=== PATIENT | male | born 1930 | race African-American/Black ===

== ENCOUNTER 2017-02-18 08:58 | Inpatient (IN) ==
[2017-02-18 09:43] LABS: Basophils # 0.1 10*3/uL (0.0-0.2); Basophils % 0.3 % (0.0-0.8); Eosinophils # 0.2 10*3/uL (0.0-0.87); Eosinophils % 1.2 % (0.00-10.9); Hematocrit 33.5 VOL% (42.0-52.0); Hemoglobin 10.8 GM/DL (14.0-18.0); Immature Granulocytes % 0.5 %; Immature Granulocytes Absolute 0.08 #; Lymphocytes # 1.5 10*3/uL (1.4-4.0); Lymphocytes % 10.5 % (21.2-54.2); Mean Corpuscular HGB Conc 32.2 GM/DL (32-36); Mean Corpuscular Hemoglobin 26 PG (27-34); Mean Corpuscular Volume 80.3 FL (87-102); Mean Platelet Volume 10.7 FL (9.6-12.0); Monocytes # 1.1 10*3/uL (0.11-0.8); Monocytes % 7.7 % (1.7-12.7); Neutrophils # 11.7 10*3/uL (1.4-7.4); Neutrophils % 79.8 % (38.7-73.9); Platelet Count 334 T/CUMM (130-400); Red Blood Count 4.17 MC/CUMM (3.8-5.5); White Blood Count 14.6 T/CUMM (4-12)
[2017-02-18 09:48] LABS: INR 1.3; PT Patient Result 13.4 SECS; Partial Thromboplastin Time 34.8 SECS (0-40)
--- NOTE | 2017-02-18 09:51 | Emergency Department Note ---
IArsalan Brittany, am scribing for, and in the presence of, Violeta Mac DO 09:47. IBubba Debra, DO, personally performed the services described in this documentation, ascribed by Judy Arriaza in my presence, and it is both accurate and complete [id number] . Arrival - Arrival Chief Complaint: Shortness of Breath Stated Complaint: sob since last pm ED Nursing Triage Note: c/o having shortness of breath., states he has had sob since last pm., patient transfer from [facility], patient did not want to come but and staff enforced him coming., patient refused his oxygen , refused breathing treatment and IV enroute per medic Mode of Arrival: Stretcher Limitations: No Limitations Source: Patient, RN Notes Reviewed - History of Present Illness HPI Narrative: Patient is a 87 y/o black male presenting to the ED by EMS from [facility] for further evaluation of shortness of breath. Patient states that he has been short of breath for the past two to three days, worsening today. Patient denies history of CHF, but reports he has had stents placed. 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 Patient has an oxygen saturation of 97% on 2L oxygen via [place]. Patient has a past medical history of Cardiac Dysrhythmia, HTN, CVA, Left Eye Ptsois, Left Eye Glaucoma, Dyslipidemia, Asthma, COPD, Chronic Renal Insufficiency, Kidney Stones, Recurrent UTIs, Diverticulitis, Diverticulosis, GERD, Polyps, Osteoarthritis. Allergies/Adverse Reactions: Allergies Allergy/AdvReac Type Severity Reaction Status Date / Time Penicillins Allergy Unknown Unknown/Unable Verified 01/01/17 16:50 to obtain Home Medications: Home Medications Medication Instructions Recorded Confirmed Type Aspirin EC Tab 81 mg PO DAILY 02/24/15 01/01/17 History Atenolol 50 mg PO DAILY 02/24/15 01/01/17 History Atorvastatin [Lipitor] 20 mg PO DAILY 02/24/15 01/01/17 History Finasteride 5 mg PO DAILY 02/24/15 01/01/17 History Tamsulosin [Flomax] 0.4 mg PO DAILY 02/24/15 01/01/17 History Apixaban [Eliquis] 5 mg PO BID 03/22/16 01/01/17 History Albuterol Sulfate [Ventolin HFA] 2 puff INH Q6H PRN 10/02/16 01/01/17 History Digoxin Tab [Lanoxin Tab] 0.125 mg PO DAILY 10/02/16 01/01/17 History Furosemide Tab [Lasix Tab] 20 mg PO DAILY 10/02/16 01/01/17 History Pantoprazole Tab [Protonix Tab] 40 mg PO DAILY 10/02/16 01/01/17 History Diclofenac 1% Gel [Voltaren 1% Gel] 1 applic TOP QID 12/21/16 01/01/17 History Fluticasone/Salmeterol 250-50 1 puff INH BID 12/21/16 01/01/17 History [Advair 250-50] Gabapentin 300 mg PO BEDTIME 12/21/16 01/01/17 History Nitroglycerin Sl Tab [Nitrostat] 0.4 mg SL Q5M PRN 12/25/16 01/01/17 History Nortriptyline HCl 25 mg PO QPM 12/25/16 01/01/17 History Roflumilast [Daliresp] 500 mcg PO DAILY 12/25/16 01/01/17 History Brimonidine 0.1% Oph Soln 1 drop BOTH EYES BID bottle 01/01/17 01/01/17 Rx [Alphagan P 0.1% Oph Soln] Diltiazem Tab [Cardizem Tab] 30 mg PO TID tablet 01/01/17 01/01/17 Rx Docusate Sodium Cap [Colace Cap] 100 mg PO BID PRN #0 capsule 01/01/17 01/01/17 Rx HYDROcodone/ACETAMIN 5-325 [[place] 1 tablet PO Q6H PRN #30 01/01/17 01/01/17 Rx 5-325] Rosuvastatin [Crestor] 40 mg PO BEDTIME tablet 01/01/17 01/01/17 Rx Review of System - Review of System 12 point system: reviewed and no additional remarkable complaints except as stated - Review of System Respiratory: Present: respiratory distress Medical,Surgical,& Family Hx - Medical History Cardio: History of: Cardiac Dysrhythmia (a-fib), Hypertension Neurology: History of: Cerebrovascular Accident (December 2016) No history of: Seizures HEENT: History of: Ear Problem (VERY HARD OF HEARING, bilateral hearing aids), Eye Problem (ptosis in Left eye), Glaucoma (left eye) Endocrine: History of: Dyslipidemia Respiratory: History of: Asthma ( states, "touch of asthma"), COPD, Respiratory Problems (sob) Renal: History of: Renal Problems (CHRONIC RENAL INSUFFICIENCY) Genitourinary: History of: Kidney Stones, Recurring Urinary Tract Infections Gastrointestinal: History of: Diverticulitis/ Diverticulosis, GERD, Polyps, GI Problems (Constipation) Musculoskeletal: History of: Musculoskeletal Problems (OSTEOARTHRITIS) - Surgical History Cardiac Surgeries: Patient Denies: Cardiac Catheterization Thoracic Surgeries: Patient denies;: Lobectomy Neurologic Surgeries: Patient denies: Neurologic Surgery HEENT Surgeries: Surgical HX of: Eye Surgery (cataract removal from both eyes) Abdominal Surgeries: Surgical HX of: Abdominal Surgery, Colonoscopy, EGD, Hernia Repair Patient denies: Appendectomy, Cholecystectomy Orthopedic Surgeries: Patient denies;: Orthopedic Surgery - Family History Family History: Reports;: Family Hypertension - Social History Smoking Status: Smoker, status unknown Frequency of Alcohol Use: None Type of Drug Use: None Exam Vital Signs: Vital Signs Temperature 98.5 F 02/18/17 08:58 Pulse Rate 125 H 02/18/17 10:49 Respiratory Rate 19 02/18/17 10:49 Blood Pressure 171/103 02/18/17 10:30 O2 Sat by Pulse Oximetry 93 L 02/18/17 10:49 - General General appearance: alert, in no apparent distress - Head Head exam: Present: atraumatic, normocephalic, normal inspection - Eye Eye exam: Present: PERRL, EOMI. Absent: normal appearance (ptosis of the left eye) - ENT ENT exam: Present: normal exam, normal oropharynx, mucous membranes moist - Neck Neck exam: Present: normal inspection, full ROM, trachea midline - Chest Chest inspection: Present: normal inspection, symmetric chest wall rise - Respiratory Respiratory exam: Present: rales (throughout both lung stein). Absent: normal lung sounds bilaterally - Cardiovascular Cardiovascular exam: Present: regular rate, normal rhythm, normal heart sounds. Absent: murmur, rubs, gallop - Abdominal Exam Abdominal exam: Present: soft, normal bowel sounds. Absent: distention, tenderness - Extremities Exam Extremities exam: Present: normal inspection. Absent: pedal edema - Back Exam Back exam: Present: normal inspection - Neurological Exam Neurological exam: Present: alert, oriented X3, CN II-XII intact. Absent: motor sensory deficit - Psychiatric Psychiatric exam: Present: normal affect, normal mood - Skin Skin exam: Present: warm, dry, intact, normal color Course Course Narrative: spoke with hospitalist who will admit pt with pneumonia Results - Labs CBC & BMP: 02/18/17 09:15 02/18/17 09:15 Lab Results: I have reviewed the patients labs Labs: Laboratory Tests 02/18/17 02/18/17 09:15 09:15 WBC 14.6 H RBC 4.17 Hgb 10.8 L Hct 33.5 L MCV 80.3 L MCH 26 L Plt Count 334 Neut % (Auto) 79.8 H Lymph % (Auto) 10.5 L Neut # (Auto) 11.7 H [place] # (Auto) 1.1 H INR 1.3 PT Patient/Control Mix 13.4 Circ Anticoag PTT 34.8 D Laboratory Tests 02/18/17 02/18/17 09:15 09:15 Sodium 138 Potassium 3.5 Chloride 103 Carbon Dioxide 27 BUN 7 Creatinine 1.30 BUN/Creatinine Ratio 5.00 L Glucose 96 Calculated Osmolality 272.7 L AST 51 H Total Creatine Kinase 89 CK-MB (CK-2) < 1.0 Troponin I < 0.015 B-Natriuretic Peptide 127 H Total Protein 8.4 H Albumin 2.4 L Globulin 6.0 H Albumin/Globulin Ratio 0.4 L Disposition Clinical Impression: Pneumonia Case discussed with: patient, patient's family Disposition: Still a Patient Condition: Stable Time of Disposition: 10:53
[2017-02-18] MEDS ORDERED: LEVOFLOXACIN INJ 500 MG in PREMIX 1 EACH IV STA (10:18)
[2017-02-18] MEDS ORDERED: LEVOFLOXACIN INJ 100 ML IV ONE (10:22)
[2017-02-18 10:24] LABS: Alanine Aminotransferase 46 U/L (16-61); Albumin 2.4 G/DL (3.4-5.0); Alkaline Phosphatase 108 U/L (45-117); Aspartate Amino Transferase 51 U/L (0-37); Blood Urea Nitrogen 7 MG/DL (7-18); Calcium 9.4 MG/DL (8.5-10.1); Glucose 96 MG/DL (74-106); Osmolality,Calculated 272.7 MOS/KG (273-304); Potassium 3.5 MMOL/L (3.5-5.1); Sodium 138 MMOL/L (136-145); Total Protein 8.4 G/DL (6.4-8.3); Troponin I Only < 0.015 NG/ML (0.00-0.045)
[2017-02-18] MEDS ORDERED: ALBUTEROL/IPRATROPIUM 3 ML NEB RESP TX STA (10:37)
[2017-02-18] MEDS ORDERED: LACTULOSE 20 GM/30 ML UDCUP PO PRN (11:55)
[2017-02-18] MEDS ORDERED: BISACODYL 5 MG TABLET PO PRN (11:55)
[2017-02-18] MEDS ORDERED: ONDANSETRON 4 MG/2 ML VIAL IV PRN (11:55)
[2017-02-18] MEDS ORDERED: ACETAMINOPHEN 325 MG TABLET PO PRN (11:55)
[2017-02-18] MEDS ORDERED: DOCUSATE SODIUM 100 MG CAPSULE PO PRN ×2 (11:55→13:11)
[2017-02-18] MEDS ORDERED: MORPHINE 2 MG/1 ML SYRINGE IV PRN (11:55)
[2017-02-18] MEDS ORDERED: ALBUTEROL/IPRATROPIUM 3 ML NEB RESP TX PRN (12:09)
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
[2017-02-18 12:35] LABS: Risk Ratio 1.78; VLDL CHOLESTEROL 15.2 MG/DL
--- NOTE | 2017-02-18 12:42 | Hospitalist History & Physical ---
Assessment and Plan - Time spent with patient Time spent with patient: Greater than 30 minutes (1) Pneumonia Status: Acute Assessment and plan: Chest x-ray shows developing right lower lobe infectious/inflammatory infiltrate. Patient has been started on Levaquin IV. Current Visit: Yes (2) Pleural effusion Status: Acute Assessment and plan: Chest x-ray reveals small right pleural effusion with suspected chronic interstitial scarring and mild superimposed interstitial edema. Patient does have a history of CHF. Will initiate diuresis and consult pulmonology if necessary. Current Visit: Yes (3) Hypertension Status: Acute Current Visit: No (4) Visual loss, left eye Status: Acute Current Visit: No History of Present Illness Chief complaint: SOB, productive cough History of present illness: Mr. Lamb is a 87 year old male with a past medical history significant for hypertension, cardiac dysrhythmia, CHF, CVA, left eye ptosis and glaucoma, hyperlipidemia, COPD, chronic renal failure who presents to the ED via EMS from [facility] for further evaluation of progressive shortness of breath and cold-like symptoms 1 week. 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 He was a patient at time in a rehab and was recently transferred to [facility]hab for further treatment. On exam , the patient is lying awake alert and in no apparent distress. He is verbal but his conversation is grossly incoherent. His and daughter are at bedside and provided most of the history. They report that the patient had been noticeably short of breath and declining for the past 2 weeks. Most recently, he has been exhibiting what they described as "cold-like" symptoms with cough productive of yellow sputum, shortness of breath, and rattling in his chest. Chest x-ray per rehab facility revealed an apparent pulmonary process and the patient was sent via EMS to [facility] for further evaluation. Patient denies headache, chest pain, palpitations, near syncope, abdominal pain , nausea vomiting. Preliminary labs in the emergency room reveal white blood cell count 14.6, hemoglobin 10.8, hematocrit 33.5, BUN 7, creatinine 1.3, calculated osmolality 272.7, BNP 127. The patient will be admitted to hospital medicine service for further evaluation and treatment. He is a full code. Case was discussed with Dr. Dubois. Home Medications Medication Instructions Recorded Confirmed Type Aspirin EC Tab 81 mg PO DAILY 02/24/15 02/18/17 History Atenolol 50 mg PO DAILY 02/24/15 02/18/17 History Finasteride 5 mg PO DAILY 02/24/15 02/18/17 History Tamsulosin [Flomax] 0.4 mg PO DAILY 02/24/15 02/18/17 History Apixaban [Eliquis] 5 mg PO BID 03/22/16 02/18/17 History Albuterol Sulfate [Ventolin HFA] 2 puff INH Q6H PRN 10/02/16 02/18/17 History Digoxin Tab [Lanoxin Tab] 0.125 mg PO DAILY 10/02/16 02/18/17 History Furosemide Tab [Lasix Tab] 20 mg PO DAILY 10/02/16 02/18/17 History Pantoprazole Tab [Protonix Tab] 40 mg PO PC BREAKFAST 10/02/16 02/18/17 History Fluticasone/Salmeterol 250-50 1 puff INH BID 12/21/16 02/18/17 History [Advair 250-50] Gabapentin 300 mg PO BEDTIME 12/21/16 02/18/17 History Nitroglycerin Sl Tab [Nitrostat] 0.4 mg SL Q5M PRN 12/25/16 02/18/17 History Nortriptyline HCl 25 mg PO QPM 12/25/16 02/18/17 History Roflumilast [Daliresp] 500 mcg PO DAILY 12/25/16 02/18/17 History Brimonidine 0.1% Oph Soln 1 drop BOTH EYES BID bottle 01/01/17 02/18/17 Rx [Alphagan P 0.1% Oph Soln] Diltiazem Tab [Cardizem Tab] 30 mg PO TID tablet 01/01/17 02/18/17 Rx Docusate Sodium Cap [Colace Cap] 100 mg PO BID PRN #0 capsule 01/01/17 02/18/17 Rx HYDROcodone/ACETAMIN 5-325 [[place] 1 tablet PO Q6H PRN #30 01/01/17 02/18/17 Rx 5-325] Rosuvastatin [Crestor] 40 mg PO BEDTIME tablet 01/01/17 02/18/17 Rx Diclofenac 1% Gel [Voltaren 1% Gel] 4 gm TOP QID MDD 32 GM/24H 02/18/17 History Doxycycline Hyclate Cap 100 mg PO BID 02/18/17 02/18/17 History [Vibramycin Cap] Magnesium Hydroxide Susp [Milk of 30 ml PO Q24H PRN 02/18/17 02/18/17 History Magnesia] Multivitamin (Centrum) [Centrum 1 tablet PO DAILY 02/18/17 02/18/17 History Tab] Allergies Allergy/AdvReac Type Severity Reaction Status Date / Time Penicillins Allergy Unknown Unknown/Unable Verified 01/01/17 16:50 to obtain Medical,Surgical,& Family Hx - Medical History Cardio: History of: Cardiac Dysrhythmia (a-fib), Hypertension Neurology: History of: Cerebrovascular Accident (December 2016) No history of: Seizures HEENT: History of: Ear Problem (VERY HARD OF HEARING, bilateral hearing aids), Eye Problem (ptosis in Left eye), Glaucoma (left eye) Endocrine: History of: Dyslipidemia Respiratory: History of: Asthma ( states, "touch of asthma"), COPD, Respiratory Problems (sob) Renal: History of: Renal Problems (CHRONIC RENAL INSUFFICIENCY) Genitourinary: History of: Kidney Stones, Recurring Urinary Tract Infections Gastrointestinal: History of: Diverticulitis/ Diverticulosis, GERD, Polyps, GI Problems (Constipation) Musculoskeletal: History of: Musculoskeletal Problems (OSTEOARTHRITIS) - Surgical History Cardiac Surgeries: Patient Denies: Cardiac Catheterization Thoracic Surgeries: Patient denies;: Lobectomy Neurologic Surgeries: Patient denies: Neurologic Surgery HEENT Surgeries: Surgical HX of: Eye Surgery (cataract removal from both eyes) Abdominal Surgeries: Surgical HX of: Abdominal Surgery, Colonoscopy, EGD, Hernia Repair Patient denies: Appendectomy, Cholecystectomy Orthopedic Surgeries: Patient denies;: Orthopedic Surgery - Family History Family History: Reports;: Family Hypertension - Social History Smoking Status: Smoker, status unknown Frequency of Alcohol Use: None Type of Drug Use: None Marital Status: Lives With:: half-way ([facility]) Functional capacity: bed bound ROS unobtainable: due to encephalopathy 12 point system: reviewed and no additional remarkable complaints except as stated - Respiratory Respiratory: Present: cough Exam - Constitutional Vitals: Period Temp Pulse Resp BP Sys/Dean Pulse Ox Last 24 Hr 112-129 19-20 150-175/92-93 93-99 Exam: General appearance: normal weight, no acute distress - Head Head exam: Present: normocephalic, atraumatic - Eye Eye exam: Present: EOMI. Absent: conjunctival injection, nystagmus Pupils: Present: MIRANDA, normal accommodation - ENT ENT exam: Present: normal exam, normal external ear exam - Neck Neck exam: Present: normal inspection. Absent: lymphadenopathy, tenderness, thyromegaly - Respiratory Respiratory exam: Present: rhonchi, expiratory wheezing. Absent: rales - Cardiovascular Cardiovascular exam: Present: regular rate and rhythm. Absent: carotid bruit, gallop, rubs - GI/Abdominal GI/Abdominal exam: Present: normal bowel sounds. Absent: ascites, distended, mass - Extremities Exam Extremities exam: Present: normal inspection, normal capillary refill. Absent: edema - Back Exam Back exam: Absent: CVA tenderness (L), CVA tenderness (R) - Neurological Exam Neurological exam: Present: alert, CN II-XII intact, reflexes normal - Psychiatric Psychiatric exam: Present: normal affect, normal mood - Skin Skin exam: Present: normal color, warm, dry Results - Labs CBC & BMP: 02/18/17 09:15 02/18/17 09:15 Lab Results: I have reviewed the past 24 hour labs - Diagnostic Findings Procedure: Chest x-ray: image reviewed by me, report reviewed by me (Small right pleural effusion; developing right lower lobe infectious process)
[2017-02-18] MEDS ORDERED: MAGNESIUM HYDROXIDE SUSP 30 ML UDCUP PO PRN (13:11)
[2017-02-18] MEDS ORDERED: NITROGLYCERIN SL 0.4 MG TABLET SL PRN (13:11)
[2017-02-18] MEDS: methylPREDNISolone SOD SUC 40 MG/1 ML VIAL IV SCH (14:47)
[2017-02-18] MEDS: DILTIAZEM 30 MG TABLET PO SCH ×2 (14:48→21:07)
[2017-02-18] MEDS: DICLOFENAC 1% GEL 100 GM TUBE TOP SCH ×2 (16:47→21:08)
[2017-02-18] MEDS: FLUTICASONE/SALMETEROL 250-50 DISKUS 14 DOSE INH SCH (21:00)
[2017-02-18] MEDS: ENOXAPARIN 40 MG/0.4 ML SYRINGE SUBCUT SCH (21:06)
[2017-02-18] MEDS: GABAPENTIN 300 MG CAPSULE PO SCH (21:07)
[2017-02-18] MEDS: ROSUVASTATIN 20 MG TABLET PO SCH (21:07)
[2017-02-18] MEDS: ZALEPLON 5 MG CAPSULE PO PRN (21:07)
[2017-02-18] MEDS: BRIMONIDINE 0.1% OPH SOLN 5 ML BOTTLE BOTH EYES SCH (21:09)
[2017-02-19] MEDS: methylPREDNISolone SOD SUC 40 MG/1 ML VIAL IV SCH ×2 (02:51→15:34)
[2017-02-19 07:06] LABS: Basophils % 0.1 % (0.0-0.8); Hematocrit 34.1 VOL% (42.0-52.0); Hemoglobin 10.9 GM/DL (14.0-18.0); Immature Granulocytes % 0.8 %; Lymphocytes # 1.2 10*3/uL (1.4-4.0); Lymphocytes % 9.1 % (21.2-54.2); Mean Corpuscular Hemoglobin 25 PG (27-34); Mean Corpuscular Volume 79.1 FL (87-102); Mean Platelet Volume 10.7 FL (9.6-12.0); Monocytes # 0.5 10*3/uL (0.11-0.8); Monocytes % 3.6 % (1.7-12.7); Neutrophils # 10.9 10*3/uL (1.4-7.4); Neutrophils % 86.4 % (38.7-73.9); Platelet Count 373 T/CUMM (130-400); Red Blood Count 4.31 MC/CUMM (3.8-5.5); Red Cell Distribution Width 13.8 % (9.3-17.3); White Blood Count 12.6 T/CUMM (4-12)
[2017-02-19 07:40] LABS: Calcium 9.3 MG/DL (8.5-10.1); Osmolality,Calculated 277.5 MOS/KG (273-304); Potassium 3.8 MMOL/L (3.5-5.1)
[2017-02-19] MEDS: TAMSULOSIN 0.4 MG CAPSULE PO SCH (09:48)
[2017-02-19] MEDS: PANTOPRAZOLE 40 MG TABLET PO SCH (09:48)
[2017-02-19] MEDS: FUROSEMIDE 20 MG TABLET PO SCH (09:48)
[2017-02-19] MEDS: DIGOXIN 0.125 MG TABLET PO SCH (09:48)
[2017-02-19] MEDS: ASPIRIN EC 81 MG TABLET PO SCH (09:48)
[2017-02-19] MEDS: FINASTERIDE 5 MG TABLET PO SCH (09:48)
[2017-02-19] MEDS: ROFLUMILAST 500 MCG TABLET PO SCH (09:48)
[2017-02-19] MEDS: DILTIAZEM 30 MG TABLET PO SCH ×3 (09:48→21:32)
[2017-02-19] MEDS: MULTIVITAMIN (CENTRUM) TABLET PO SCH (09:48)
[2017-02-19] MEDS: ATENOLOL 50 MG TABLET PO SCH (09:48)
[2017-02-19] MEDS: BRIMONIDINE 0.1% OPH SOLN 5 ML BOTTLE BOTH EYES SCH ×2 (09:49→21:31)
[2017-02-19] MEDS: DICLOFENAC 1% GEL 100 GM TUBE TOP SCH ×4 (09:49→21:31)
[2017-02-19] MEDS: FLUTICASONE/SALMETEROL 250-50 DISKUS 14 DOSE INH SCH ×2 (09:52→21:31)
[2017-02-19] MEDS: LEVOFLOXACIN INJ 750 MG in PREMIX 1 EACH IV SCH (11:53)
[2017-02-19 15:45] LABS: Apearance,Urine CLEAR (Clear); Bilirubin,Urine Negative (Negative); Blood, Urine Negative (Negative); Glucose,Urine (UA) Negative (Negative); Ketones,Urine 5 mg/dL (Negative); Mucus,Urine Occasional /LPF (Occasional); Nitrite,Urine Negative (Negative); Protein,Urine 30 MG/DL; RBC,Urine <1 /HPF (0-4); Urine Color Yellow (Yellow); Urine Specific Gravity 1.011 (1.001-1.035); Urine Urobilinogen < 2.0 EU/DL (0.2-1.0); WBC,Urine 1 /HPF (0-6)
--- NOTE | 2017-02-19 16:25 | Hospitalist Progress Note ---
Assessment and Plan (1) Visual loss, left eye Status: Chronic Current Visit: No (2) Hypertension Status: Chronic Current Visit: No (3) Pneumonia Status: Acute Current Visit: Yes Hospitalist: Subjective Interval history: No acute events overnight. He reports improvement in his cough. He is breathing comfortably. Continue abx and duonebs. Possible discharge soon. Exam - Constitutional Vitals: Period Temp Pulse Resp BP Sys/Dean Pulse Ox Last 24 Hr 97.9 F-99.6 F 83-98 18-20 144-162/69-93 92-99 General appearance: normal weight - Head Head exam: Present: normocephalic, atraumatic - Eye Eye exam: Present: EOMI Pupils: Present: MIRANDA - ENT ENT exam: Present: normal exam - Neck Neck exam: Present: normal inspection - Respiratory Respiratory exam: Present: clear to auscultation bilaterally. Absent: rhonchi, wheezes - Cardiovascular Cardiovascular exam: Present: regular rate and rhythm - GI/Abdominal GI/Abdominal exam: Present: normal bowel sounds, soft. Absent: tenderness, rebound - Extremities Exam Extremities exam: Present: normal inspection - Back Exam Back exam: Present: normal inspection - Neurological Exam Neurological exam: Present: alert, oriented X3 - Psychiatric Psychiatric exam: Present: normal affect, normal mood - Skin Skin exam: Present: warm, intact Results - Labs CBC & BMP: 02/19/17 06:00 02/19/17 06:00
[2017-02-19] MEDS: ENOXAPARIN 40 MG/0.4 ML SYRINGE SUBCUT SCH (21:30)
[2017-02-19] MEDS: ROSUVASTATIN 20 MG TABLET PO SCH (21:31)
[2017-02-19] MEDS: GABAPENTIN 300 MG CAPSULE PO SCH (21:31)
[2017-02-20] MEDS: methylPREDNISolone SOD SUC 40 MG/1 ML VIAL IV SCH ×2 (02:49→15:17)
[2017-02-20 05:19] LABS: Basophils % 0.1 % (0.0-0.8); Hematocrit 34.9 VOL% (42.0-52.0); Hemoglobin 11.1 GM/DL (14.0-18.0); Immature Granulocytes Absolute 0.17 #; Lymphocytes % 5.7 % (21.2-54.2); Mean Corpuscular HGB Conc 31.8 GM/DL (32-36); Mean Corpuscular Hemoglobin 26 PG (27-34); Mean Corpuscular Volume 80.2 FL (87-102); Mean Platelet Volume 10.3 FL (9.6-12.0); Monocytes # 0.3 10*3/uL (0.11-0.8); Monocytes % 1.8 % (1.7-12.7); Neutrophils # 15.7 10*3/uL (1.4-7.4); Neutrophils % 91.4 % (38.7-73.9); Platelet Count 405 T/CUMM (130-400); Red Blood Count 4.35 MC/CUMM (3.8-5.5); Red Cell Distribution Width 13.8 % (9.3-17.3); White Blood Count 17.1 T/CUMM (4-12)
[2017-02-20 05:55] LABS: Band Neutrophils 1 % (0-10); Hypochromasia 1+; Lymphocytes 4 % (20-55); Microcytosis 1+; Segmented Neutrophils 94 % (50-85); Total Cells Counted 100
[2017-02-20 09:02] LABS: Albumin 2.5 G/DL (3.4-5.0); Bilirubin,Total 0.4 MG/DL (0.2-1.0); Calcium 9.3 MG/DL (8.5-10.1); Osmolality,Calculated 280.7 MOS/KG (273-304); Potassium 4.1 MMOL/L (3.5-5.1); Total Protein 7.5 G/DL (6.4-8.3)
[2017-02-20 09:14] LABS: Magnesium 2.4 MG/DL (1.8-2.4); Phosphorous 2.7 MG/DL (2.5-4.9)
--- NOTE | 2017-02-20 09:30 | Hospitalist Progress Note ---
<Mera Iversonbrit - Last Filed: 02/20/17 09:33> Assessment and Plan (1) Pneumonia Status: Acute Assessment and plan: WBC elevated today at 17.1 from 12.6. Continue antibiotics as previously ordered ; will start Current Visit: Yes (2) Atrial fibrillation Status: Acute Assessment and plan: Rate is controlled; will monitor closely and treat as indicated. Current Visit: No (3) Visual loss, left eye Status: Chronic Assessment and plan: Will start eye lubricant at hs for comfort. Current Visit: No Hospitalist: Subjective Interval history: Patient seen and examined. No significant overnight events. Noted elevation in WBC's; WBC at 17.1 from 12.6 on yesterday. Exam - Constitutional Vitals: Period Temp Pulse Resp BP Sys/Dean Pulse Ox Last 24 Hr 98.1 F-98.7 F 83-98 16-20 136-157/64-88 92-99 General appearance: normal weight, no acute distress - Head Head exam: Present: normal inspection, normocephalic, atraumatic - Eye Eye exam: Present: EOMI, other (vision loss to right eye) Pupils: Present: MIRANDA - ENT ENT exam: Present: normal exam - Neck Neck exam: Present: normal inspection. Absent: lymphadenopathy, meningismus, thyromegaly - Respiratory Respiratory exam: Present: decreased breath sounds. Absent: rales, rhonchi, stridor, wheezes - Cardiovascular Cardiovascular exam: Present: regular rate and rhythm. Absent: carotid bruit, diastolic murmur, gallop, JVD, rubs, systolic murmur - GI/Abdominal GI/Abdominal exam: Present: normal bowel sounds, soft. Absent: firm, guarding - Extremities Exam Extremities exam: Present: normal inspection - Back Exam Back exam: Present: normal inspection - Neurological Exam Neurological exam: Present: alert, altered - Psychiatric Psychiatric exam: Present: normal affect - Skin Skin exam: Present: normal color, warm, dry Results - Labs CBC & BMP: 02/20/17 05:04 02/20/17 05:00 Lab Results: I have reviewed the past 24 hour labs <Stan Streeter - Last Filed: 02/20/17 14:16> Assessment and Plan (1) Visual loss, left eye Status: Chronic Current Visit: No (2) Hypertension Status: Chronic Current Visit: No (3) Pneumonia Status: Acute Current Visit: Yes Hospitalist: Subjective Interval history: Patient seen and examined along with CY[employer] SOFTWARE ENGINEER Kishor, agree with history, assessment and plan as documented. Patient reports that he feels well. Worsening leukocytosis today, patient remains afebrile with no new overt signs of infection. Will monitor closely. Possible discharge soon. Exam - Constitutional Vitals: Period Temp Pulse Resp BP Sys/Dean Pulse Ox Last 24 Hr 98.2 F-98.7 F 78-97 16-20 136-159/64-88 93-99 Results - Labs CBC & BMP: 02/20/17 05:04 02/20/17 05:00
[2017-02-20] MEDS: BRIMONIDINE 0.1% OPH SOLN 5 ML BOTTLE BOTH EYES SCH ×2 (09:35→20:53)
[2017-02-20] MEDS: DIGOXIN 0.125 MG TABLET PO SCH (09:35)
[2017-02-20] MEDS: FLUTICASONE/SALMETEROL 250-50 DISKUS 14 DOSE INH SCH ×2 (09:35→20:53)
[2017-02-20] MEDS: DICLOFENAC 1% GEL 100 GM TUBE TOP SCH ×4 (09:35→20:54)
[2017-02-20] MEDS: DILTIAZEM 30 MG TABLET PO SCH ×3 (09:36→20:53)
[2017-02-20] MEDS: MULTIVITAMIN (CENTRUM) TABLET PO SCH (09:36)
[2017-02-20] MEDS: ASPIRIN EC 81 MG TABLET PO SCH (09:36)
[2017-02-20] MEDS: TAMSULOSIN 0.4 MG CAPSULE PO SCH (09:36)
[2017-02-20] MEDS: ROFLUMILAST 500 MCG TABLET PO SCH (09:37)
[2017-02-20] MEDS: PANTOPRAZOLE 40 MG TABLET PO SCH (09:38)
[2017-02-20] MEDS: FINASTERIDE 5 MG TABLET PO SCH (09:38)
[2017-02-20] MEDS: ATENOLOL 50 MG TABLET PO SCH (09:38)
[2017-02-20] MEDS: FUROSEMIDE 20 MG TABLET PO SCH (09:38)
[2017-02-20] MEDS: LEVOFLOXACIN INJ 750 MG in PREMIX 1 EACH IV SCH (11:04)
[2017-02-20] MEDS: ROSUVASTATIN 20 MG TABLET PO SCH (20:52)
[2017-02-20] MEDS: ZALEPLON 5 MG CAPSULE PO PRN (20:53)
[2017-02-20] MEDS: GABAPENTIN 300 MG CAPSULE PO SCH (20:53)
[2017-02-20] MEDS: ENOXAPARIN 40 MG/0.4 ML SYRINGE SUBCUT SCH (20:53)
[2017-02-20] MEDS ORDERED: MINERAL OIL/PETROLATUM OPH OINT 3.5 GM TUBE LEFT EYE SCH (21:00)
[2017-02-20] MEDS ORDERED: MINERAL OIL/PETROLATUM OPH OINT 3.5 GM TUBE RIGHT EYE SCH (21:00)
[2017-02-21] MEDS: methylPREDNISolone SOD SUC 40 MG/1 ML VIAL IV SCH (02:33)
[2017-02-21 06:57] LABS: Basophils % 0.1 % (0.0-0.8); Hematocrit 33.5 VOL% (42.0-52.0); Hemoglobin 10.8 GM/DL (14.0-18.0); Immature Granulocytes % 1.6 %; Lymphocytes % 5.5 % (21.2-54.2); Mean Corpuscular HGB Conc 32.2 GM/DL (32-36); Mean Corpuscular Hemoglobin 26 PG (27-34); Mean Platelet Volume 10.6 FL (9.6-12.0); Monocytes # 0.4 10*3/uL (0.11-0.8); Monocytes % 2.1 % (1.7-12.7); Neutrophils # 17.1 10*3/uL (1.4-7.4); Neutrophils % 90.7 % (38.7-73.9); Platelet Count 409 T/CUMM (130-400); Red Blood Count 4.19 MC/CUMM (3.8-5.5); Red Cell Distribution Width 13.9 % (9.3-17.3); White Blood Count 18.8 T/CUMM (4-12)
[2017-02-21 07:17] LABS: Band Neutrophils 2 % (0-10); Lymphocytes 1 % (20-55); Nucleated Red Blood Cells 1 (0-5); Segmented Neutrophils 95 % (50-85); Total Cells Counted 100
[2017-02-21 07:18] LABS: Elliptocytes Few; Hypochromasia 1+; Microcytosis 1+; Platelet Estimate Adequate
[2017-02-21 07:32] LABS: Albumin 2.4 G/DL (3.4-5.0); Bilirubin,Total 0.6 MG/DL (0.2-1.0); Calcium 8.7 MG/DL (8.5-10.1); Magnesium 2.4 MG/DL (1.8-2.4); Osmolality,Calculated 282.4 MOS/KG (273-304); Phosphorous 2.5 MG/DL (2.5-4.9); Potassium 4.2 MMOL/L (3.5-5.1); Total Protein 7.1 G/DL (6.4-8.3)
[2017-02-21] MEDS: FINASTERIDE 5 MG TABLET PO SCH (08:04)
[2017-02-21] MEDS: ATENOLOL 50 MG TABLET PO SCH (08:04)
[2017-02-21] MEDS: PANTOPRAZOLE 40 MG TABLET PO SCH (08:04)
[2017-02-21] MEDS: ROFLUMILAST 500 MCG TABLET PO SCH (08:04)
[2017-02-21] MEDS: ASPIRIN EC 81 MG TABLET PO SCH (08:04)
[2017-02-21] MEDS: DIGOXIN 0.125 MG TABLET PO SCH (08:04)
[2017-02-21] MEDS: DILTIAZEM 30 MG TABLET PO SCH (08:04)
[2017-02-21] MEDS: MULTIVITAMIN (CENTRUM) TABLET PO SCH (08:04)
[2017-02-21] MEDS: TAMSULOSIN 0.4 MG CAPSULE PO SCH (08:04)
[2017-02-21] MEDS: FUROSEMIDE 20 MG TABLET PO SCH (08:05)
[2017-02-21] MEDS: DICLOFENAC 1% GEL 100 GM TUBE TOP SCH ×2 (08:05→12:28)
[2017-02-21] MEDS: BRIMONIDINE 0.1% OPH SOLN 5 ML BOTTLE BOTH EYES SCH (08:05)
[2017-02-21] MEDS: FLUTICASONE/SALMETEROL 250-50 DISKUS 14 DOSE INH SCH (08:05)
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
[2017-02-21] MEDS ORDERED: predniSONE 20 MG TABLET PO SCH (09:00)
[2017-02-21] MEDS: LEVOFLOXACIN INJ 750 MG in PREMIX 1 EACH IV SCH (10:45)
[2017-02-21 11:57] VITALS: BP 139/77
--- NOTE | 2017-02-21 12:20 | Discharge Summary ---
Hospital Course - Hospital Course Hospital Course: Mr. Lamb is a 87 year old male with a past medical history significant for hypertension, cardiac dysrhythmia, CHF, CVA, left eye ptosis and glaucoma, hyperlipidemia, COPD, chronic renal failure who presents to the ED via EMS from [facility] for further evaluation of progressive shortness of breath and cold-like symptoms 1 week. 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 He was a patient at time in a rehab and was recently transferred to [facility] for further treatment. Patient was admitted to the hospitalist service for COPD exacerbation and pneumonia. He was started on levaquin and steroids with duoneb breathing treatments. He has done well with initial decline in his white blood cell count. Shortness of breath is completely resolved. He does now have a leukocytosis. CXR is improved and patient is afebrile, believe this leukocytosis is due to steroid use. He has now reached maximum benefit of inpatient stay and will be discharged back to [facility]. - Time spent with patient Time with patient DS: Less than 30 minutes Diagnosis - Discharge Diagnosis (1) Visual loss, left eye Status: Chronic (2) Hypertension Status: Chronic (3) Pneumonia Status: Resolved Discharge Plan - Discharge Data Condition at Discharge: Stable Discharge Diet: advance to your usual diet Activity: resume usual activities as tolerated Hygiene: no restrictions Weight Bearing at Discharge: weight bear as tolerated Contact your physician if you experience:: fever over 101, Shortness of breath - Discharge Medications New predniSONE TAB [PredniSONE] 40 mg PO DAILY #6 tablet Levofloxacin Tab [Levaquin Tab] 500 mg PO DAILY #3 tablet Continue Tamsulosin [Flomax] 0.4 mg PO DAILY Finasteride 5 mg PO DAILY Atenolol 50 mg PO DAILY Aspirin EC Tab 81 mg PO DAILY Apixaban [Eliquis] 5 mg PO BID Albuterol Sulfate [Ventolin HFA] 2 puff INH Q6H PRN PRN Reason: Shortness Of Breath/Wheezing Roflumilast [Daliresp] 500 mcg PO DAILY Nitroglycerin Sl Tab [Nitrostat] 0.4 mg SL Q5M PRN PRN Reason: Chest Pain Diltiazem Tab [Cardizem Tab] 30 mg PO TID tablet Docusate Sodium Cap [Colace Cap] 100 mg PO BID PRN #0 capsule PRN Reason: Constipation Rosuvastatin [Crestor] 40 mg PO BEDTIME tablet Diclofenac 1% Gel [Voltaren 1% Gel] 4 gm TOP QID MDD 32 GM/24H Magnesium Hydroxide Susp [Milk of Magnesia] 30 ml PO Q24H PRN PRN Reason: Constipation Multivitamin (Centrum) [Centrum Tab] 1 tablet PO DAILY Furosemide Tab [Lasix Tab] 20 mg PO DAILY Pantoprazole Tab [Protonix Tab] 40 mg PO PC BREAKFAST Digoxin Tab [Lanoxin Tab] 0.125 mg PO DAILY Gabapentin 300 mg PO BEDTIME Fluticasone/Salmeterol 250-50 [Advair 250-50] 1 puff INH BID Nortriptyline HCl 25 mg PO QPM Brimonidine 0.1% Oph Soln [Alphagan P 0.1% Oph Soln] 1 drop BOTH EYES BID bottle HYDROcodone/ACETAMIN 5-325 [[place] 5-325] 1 tablet PO Q6H PRN #30 PRN Reason: Pain Discontinued Doxycycline Hyclate Cap [Vibramycin Cap] 100 mg PO BID - Follow Up or Referral - Forms/Instructions Exam - Constitutional Vitals: Period Temp Pulse Resp BP Sys/Dean Pulse Ox Last 24 Hr 97.5 F-98.4 F 74-101 16-20 127-147/71-97 95-100 General appearance: over weight - Head Head exam: Present: normocephalic, atraumatic - Eye Eye exam: Present: EOMI Pupils: Present: MIRANDA - ENT ENT exam: Present: normal exam - Neck Neck exam: Present: normal inspection - Respiratory Respiratory exam: Present: clear to auscultation bilaterally. Absent: rhonchi, wheezes - Cardiovascular Cardiovascular exam: Present: regular rate and rhythm - GI/Abdominal GI/Abdominal exam: Present: normal bowel sounds, soft. Absent: tenderness, rebound - Extremities Exam Extremities exam: Present: normal inspection - Back Exam Back exam: Present: normal inspection - Neurological Exam Neurological exam: Present: alert, oriented X3 - Psychiatric Psychiatric exam: Present: normal affect, normal mood - Skin Skin exam: Present: warm, intact Discharge Results Labs on day of discharge: Labs from last 24 hours 02/21/17 02/21/17 05:57 05:57 WBC 18.8 H RBC 4.19 Hgb 10.8 L Hct 33.5 L MCV 80.0 L MCH 26 L MCHC 32.2 RDW 13.9 Plt Count 409 H MPV 10.6 Neut % (Auto) 90.7 H Lymph % (Auto) 5.5 L [place] % (Auto) 2.1 Eos % (Auto) 0.0 Baso % (Auto) 0.1 Neut # (Auto) 17.1 H Lymph # (Auto) 1.0 L [place] # (Auto) 0.4 Eos # (Auto) 0.0 Baso # (Auto) 0.0 Total Counted 100 Immature Gran % 1.6 Nucleated RBC % 0.0 Immature Gran # 0.30 Segmented Neutrophils 95 H Band Neutrophils 2 Lymphocytes 1 L Monocytes 2 Nucleated RBCs 1 Nucleated RBCs # 0.00 Platelet Estimate Adequate Hypochromasia 1+ Microcytosis 1+ Elliptocytes Few Morphology Comment Sodium 140 Potassium 4.2 Chloride 103 Carbon Dioxide 30 Anion Gap 11.2 BUN 19 H Creatinine 1.20 GFR Calculation 75 BUN/Creatinine Ratio 15.00 Glucose 134 H Calculated Osmolality 282.4 Calcium 8.7 Phosphorus 2.5 Magnesium 2.4 Total Bilirubin 0.60 AST 96 H ALT 146 H Alkaline Phosphatase 114 Total Protein 7.1 Albumin 2.4 L Globulin 4.7 H Albumin/Globulin Ratio 0.5 L DS: Provider Date of admission: 02/18/17 10:37 Primary care physician: . No PCP Attending physician on admission: Tobi Dubois MD Consults: 02/18/17 12:18 Consult to Pharmacy [CONS] Routine Reason for Pharmacy Consult: Adjust Meds Renal Funct 02/18/17 14:42 Consult to Dietitian [CONS] Routine Reason for Dietitian: Other Consult Comment: weight loss 02/19/17 15:49 Consult to Physical Therapy [CONS] Routine Reason for Physical Therapy: Evaluate and Treat Discharging clinician: Stan Streeter MD
== END 2017-02-21 15:35 | DRG 190 ==
LOC: EDUNIT# → N.ED 08:58 → SUATTDRO 10:37 → N.EDINP 10:37 → N.5E 11:49
PROVIDERS: ADMIT Internal Medicine; ATTEND Internal Medicine

== ENCOUNTER 2017-09-14 12:21 | Inpatient (IN) ==
[2017-09-14 13:40] LABS: Basophils % 0.1 % (0.0-0.8); Eosinophils # 0.1 10*3/uL (0.0-0.87); Eosinophils % 0.5 % (0.00-10.9); Hematocrit 40.5 VOL% (42.0-52.0); Hemoglobin 13.5 GM/DL (14.0-18.0); Immature Granulocytes % 0.9 %; Immature Granulocytes Absolute 0.12 #; Lymphocytes # 1.7 10*3/uL (1.4-4.0); Lymphocytes % 12.6 % (21.2-54.2); Mean Corpuscular HGB Conc 33.3 GM/DL (32-36); Mean Corpuscular Hemoglobin 27 PG (27-34); Mean Corpuscular Volume 81.2 FL (87-102); Mean Platelet Volume 10.3 FL (9.6-12.0); Monocytes # 1.2 10*3/uL (0.11-0.8); Monocytes % 8.9 % (1.7-12.7); Neutrophils # 10.6 10*3/uL (1.4-7.4); Platelet Count 192 T/CUMM (130-400); Red Blood Count 4.99 MC/CUMM (3.8-5.5); Red Cell Distribution Width 17.9 % (9.3-17.3); White Blood Count 13.8 T/CUMM (4-12)
[2017-09-14 13:42] LABS: Apearance,Urine CLEAR (Clear); Bilirubin,Urine Negative (Negative); Blood, Urine Negative (Negative); Glucose,Urine (UA) Negative (Negative); Hyaline Casts,Urine 1 /LPF (0-3); Ketones,Urine Negative (Negative); Nitrite,Urine Negative (Negative); Protein,Urine Negative; RBC,Urine <1 /HPF (0-4); Urine Color Straw (Yellow); Urine Specific Gravity 1.008 (1.001-1.035); Urine Urobilinogen < 2.0 EU/DL (0.2-1.0); WBC,Urine 2 /HPF (0-6)
[2017-09-14 13:47] LABS: INR 1.1; PT Patient Result 11.3 SECS; Partial Thromboplastin Time 25.8 SECS (0-40)
[2017-09-14 13:58] LABS: Alanine Aminotransferase 38 U/L (16-61); Albumin 3.2 G/DL (3.4-5.0); Alkaline Phosphatase 73 U/L (45-117); Aspartate Amino Transferase 19 U/L (0-37); Blood Urea Nitrogen 30 MG/DL (7-18); Glucose 55 MG/DL (74-106); Osmolality,Calculated 280.5 MOS/KG (273-304); Potassium 3.7 MMOL/L (3.5-5.1); Sodium 139 MMOL/L (136-145); Total Protein 7.4 G/DL (6.4-8.3); Troponin I Only < 0.015 NG/ML (0.00-0.045)
[2017-09-14] MEDS ORDERED: LORazepam 2 MG/1 ML VIAL IV STA ×2 (14:11→16:13)
[2017-09-14] MEDS ORDERED: LORazepam 2 MG/1 ML VIAL ONE (14:17)
[2017-09-14] MEDS ORDERED: LABETALOL 20 MG/4 ML SYRINGE IV PRN (16:25)
[2017-09-14 17:03] LABS: Barbiturates Screen,Urine Negative (Negative); Benzodiazepines Screen,Urine Negative (Negative); Cannabinoid Screen,Urine Negative (Negative); Opiate Screen,Urine Negative (Negative); Phencyclidine Screen,Urine Negative (Negative)
[2017-09-14 17:07] LABS: Risk Ratio 1.83; VLDL CHOLESTEROL 13.4 MG/DL
[2017-09-14] MEDS ORDERED: GLUCAGON 1 MG VIAL IM PRN (18:12)
[2017-09-14] MEDS ORDERED: DEXTROSE 50% 25 GM/50 ML VIAL IV PRN (18:12)
[2017-09-14] MEDS: ASPIRIN 325 MG TABLET PO SCH (18:23)
[2017-09-14] MEDS: CLOPIDOGREL 75 MG TABLET PO SCH (18:24)
[2017-09-14] MEDS: SODIUM CHLORIDE 0.45% 1,000 ML IV SCH (20:53)
[2017-09-14 21:00] LABS: Cholesterol 181 MG/DL (50-200); Free T4 (Free Thyroxine) 1.01 NG/DL (0.76-1.46); HDL Cholesterol 94 MG/DL (40-60); Risk Ratio 1.93; Thyroid Stimulating Hormone 0.743 uIU/ml (0.358-3.74); Triglycerides 41 MG/DL (2-150); Troponin I Only < 0.015 NG/ML (0.00-0.045); VLDL CHOLESTEROL 8.2 MG/DL
[2017-09-14] MEDS ORDERED: ALBUTEROL 2.5 MG/3 ML NEB RESP TX PRN (21:00)
[2017-09-14] MEDS: FLUTICASONE/SALMETEROL 250-50 DISKUS 14 DOSE INH SCH (21:18)
[2017-09-14] MEDS: DICLOFENAC 1% GEL 100 GM TUBE TOP SCH (21:18)
[2017-09-14] MEDS: BRIMONIDINE 0.1% OPH SOLN 5 ML BOTTLE BOTH EYES SCH (21:18)
[2017-09-14] MEDS: GABAPENTIN 300 MG CAPSULE PO SCH (21:19)
[2017-09-15 05:51] LABS: Basophils % 0.2 % (0.0-0.8); Eosinophils % 0.3 % (0.00-10.9); Hematocrit 41.5 VOL% (42.0-52.0); Immature Granulocytes % 0.6 %; Immature Granulocytes Absolute 0.08 #; Lymphocytes % 15.4 % (21.2-54.2); Mean Corpuscular HGB Conc 33.7 GM/DL (32-36); Mean Corpuscular Hemoglobin 27 PG (27-34); Mean Corpuscular Volume 80.4 FL (87-102); Mean Platelet Volume 10.7 FL (9.6-12.0); Monocytes % 7.2 % (1.7-12.7); Neutrophils % 76.3 % (38.7-73.9); Platelet Count 184 T/CUMM (130-400); Red Blood Count 5.16 MC/CUMM (3.8-5.5); Red Cell Distribution Width 18.2 % (9.3-17.3); White Blood Count 13.2 T/CUMM (4-12)
[2017-09-15 06:12] LABS: Calcium 9.2 MG/DL (8.5-10.1); Osmolality,Calculated 283.4 MOS/KG (273-304); Potassium 4.5 MMOL/L (3.5-5.1)
[2017-09-15] MEDS ORDERED: DEXAMETHASONE 0.5 MG TABLET PO SCH (09:00)
[2017-09-15] MEDS ORDERED: ATORVASTATIN 20 MG TABLET PO SCH ×2 (09:00→15:14)
[2017-09-15] MEDS ORDERED: LORazepam 2 MG/1 ML VIAL ONE (14:26)
[2017-09-15] MEDS: FLUTICASONE/SALMETEROL 250-50 DISKUS 14 DOSE INH SCH ×2 (14:43→22:17)
[2017-09-15] MEDS: BRIMONIDINE 0.1% OPH SOLN 5 ML BOTTLE BOTH EYES SCH ×2 (14:44→22:17)
[2017-09-15] MEDS: PANTOPRAZOLE 40 MG TABLET PO SCH (14:44)
[2017-09-15] MEDS: DICLOFENAC 1% GEL 100 GM TUBE TOP SCH ×4 (14:44→22:17)
[2017-09-15] MEDS: ROFLUMILAST 500 MCG TABLET PO SCH (14:45)
[2017-09-15] MEDS: TAMSULOSIN 0.4 MG CAPSULE PO SCH (14:45)
[2017-09-15] MEDS: MULTIVITAMIN (CENTRUM) TABLET PO SCH (14:45)
[2017-09-15] MEDS: CLOPIDOGREL 75 MG TABLET PO SCH (14:46)
[2017-09-15] MEDS: ASPIRIN 325 MG TABLET PO SCH (14:46)
[2017-09-15] MEDS: LORazepam 2 MG/1 ML VIAL IV PRN (14:47)
[2017-09-15] MEDS ORDERED: methylPREDNISolone SOD SUC 40 MG/1 ML VIAL IV SCH (15:30)
[2017-09-15] MEDS ORDERED: MORPHINE 2 MG/1 ML SYRINGE ONE (17:44)
[2017-09-15] MEDS ORDERED: FUROSEMIDE 40 MG/4 ML VIAL ONE (17:46)
[2017-09-15 17:55] LABS: Allen Test Positive
[2017-09-15 17:57] LABS: ABG Base Excess 2.6 MMOL/L (-2.5-2.5); ABG HCO3 26.8 MMOL/L (20-26); ABG Oxygen Saturation 99.1 % (95-100); ABG PCO2 40.1 MM HG (35-48); ABG PH 7.443 (7.35-7.45); ABG PO2 229.5 MM HG (80-95)
[2017-09-15] MEDS: SODIUM CHLORIDE 0.45% 1,000 ML IV SCH (18:17)
[2017-09-15] MEDS ORDERED: hydrALAZINE 20 MG/1 ML VIAL IV PRN (18:21)
[2017-09-15] MEDS ORDERED: LEVOFLOXACIN INJ 750 MG in PREMIX 1 EACH IV SCH (18:30)
[2017-09-15] MEDS ORDERED: DILTIAZEM 100 MG VIAL.ADD IV ONE (18:35)
[2017-09-15] MEDS ORDERED: ETOMIDATE 20 MG/10 ML VIAL IV ONE (18:38)
[2017-09-15] MEDS ORDERED: MORPHINE 2 MG/1 ML SYRINGE IV ONE (18:39)
[2017-09-15] MEDS ORDERED: FUROSEMIDE 40 MG/4 ML VIAL IV ONE (18:39)
[2017-09-15] MEDS ORDERED: LORazepam 2 MG/1 ML VIAL IV ONE (18:39)
[2017-09-15] MEDS ORDERED: methylPREDNISolone SOD SUC 40 MG/1 ML VIAL IV ONE (18:40)
[2017-09-15] MEDS ORDERED: MIDAZOLAM 10 MG/2 ML VIAL ONE (18:43)
[2017-09-15] MEDS ORDERED: PROPOFOL 1,000 MG/100 ML BOTTLE IV ONE (18:46)
[2017-09-15] MEDS ORDERED: DILTIAZEM INJ 100 MG in SODIUM CHLORIDE 0.9% 100 ML IV SCH (19:00)
[2017-09-15] MEDS ORDERED: PROPOFOL 1,000 MG/100 ML BOTTLE IV SCH (19:00)
[2017-09-15] MEDS ORDERED: niCARdipine INJ 25 MG in SODIUM CHLORIDE 0.9% 240 ML IV SCH (19:00)
[2017-09-15] MEDS ORDERED: NOREPINEPHRINE 4 MG/4 ML VIAL IV ONE (19:18)
[2017-09-15] MEDS: ALBUTEROL/IPRATROPIUM 3 ML NEB RESP TX SCH (20:10)
[2017-09-15] MEDS: MORPHINE 2 MG/1 ML SYRINGE IV PRN (20:12)
[2017-09-15] MEDS ORDERED: NORTRIPTYLINE 25 MG CAPSULE PO SCH (21:00)
[2017-09-15] MEDS: GABAPENTIN 300 MG CAPSULE PO SCH (22:17)
[2017-09-16] MEDS: methylPREDNISolone SOD SUC 40 MG/1 ML VIAL IV SCH ×2 (00:13→07:29)
[2017-09-16] MEDS: MORPHINE 2 MG/1 ML SYRINGE IV PRN ×3 (00:13→12:09)
[2017-09-16] MEDS: ALBUTEROL/IPRATROPIUM 3 ML NEB RESP TX SCH ×4 (03:27→19:49)
[2017-09-16] MEDS: PANTOPRAZOLE 40 MG TABLET PO SCH (07:26)
[2017-09-16] MEDS: MULTIVITAMIN (CENTRUM) TABLET PO SCH (08:01)
[2017-09-16] MEDS: FLUTICASONE/SALMETEROL 250-50 DISKUS 14 DOSE INH SCH (08:01)
[2017-09-16] MEDS: ROFLUMILAST 500 MCG TABLET PO SCH (08:01)
[2017-09-16] MEDS: TAMSULOSIN 0.4 MG CAPSULE PO SCH (08:01)
[2017-09-16] MEDS: BRIMONIDINE 0.1% OPH SOLN 5 ML BOTTLE BOTH EYES SCH (08:01)
[2017-09-16] MEDS: CLOPIDOGREL 75 MG TABLET PO SCH (08:02)
[2017-09-16] MEDS: DICLOFENAC 1% GEL 100 GM TUBE TOP SCH ×2 (08:02→12:10)
[2017-09-16] MEDS: SODIUM CHLORIDE 0.45% 1,000 ML IV SCH (11:53)
[2017-09-16] MEDS: LORazepam 2 MG/1 ML VIAL IV PRN (19:15)
[2017-09-17] MEDS: ALBUTEROL/IPRATROPIUM 3 ML NEB RESP TX SCH ×4 (01:28→19:43)
[2017-09-17] MEDS: LORazepam 2 MG/1 ML VIAL IV PRN ×2 (05:24→21:12)
[2017-09-17 07:22] LABS: Basophils % 0.2 % (0.0-0.8); Eosinophils % 0.1 % (0.00-10.9); Hematocrit 42.6 VOL% (42.0-52.0); Hemoglobin 13.9 GM/DL (14.0-18.0); Immature Granulocytes % 0.8 %; Immature Granulocytes Absolute 0.11 #; Lymphocytes # 2.2 10*3/uL (1.4-4.0); Lymphocytes % 15.1 % (21.2-54.2); Mean Corpuscular HGB Conc 32.6 GM/DL (32-36); Mean Corpuscular Hemoglobin 27 PG (27-34); Mean Corpuscular Volume 82.1 FL (87-102); Mean Platelet Volume 10.2 FL (9.6-12.0); Monocytes # 1.6 10*3/uL (0.11-0.8); Monocytes % 11.2 % (1.7-12.7); Neutrophils # 10.3 10*3/uL (1.4-7.4); Neutrophils % 72.6 % (38.7-73.9); Platelet Count 163 T/CUMM (130-400); Red Blood Count 5.19 MC/CUMM (3.8-5.5); Red Cell Distribution Width 18.5 % (9.3-17.3); White Blood Count 14.2 T/CUMM (4-12)
[2017-09-17 07:56] LABS: Calcium 9.4 MG/DL (8.5-10.1); Osmolality,Calculated 292.7 MOS/KG (273-304); Potassium 4.2 MMOL/L (3.5-5.1)
[2017-09-17] MEDS ORDERED: TUBERCULIN SKIN TEST 0.1 ML SYRINGE INTRADERM ONE (12:04)
[2017-09-17] MEDS: MORPHINE 2 MG/1 ML SYRINGE IV PRN (23:18)
[2017-09-18] MEDS: ALBUTEROL/IPRATROPIUM 3 ML NEB RESP TX SCH ×3 (00:03→15:03)
[2017-09-18] MEDS: SODIUM CHLORIDE 0.45% 1,000 ML IV SCH ×2 (00:21→06:47)
[2017-09-18] MEDS: MORPHINE 2 MG/1 ML SYRINGE IV PRN ×2 (10:43→13:54)
[2017-09-18 11:28] VITALS: BP 131/75
== END 2017-09-18 15:10 | DRG 64 ==
LOC: EDUNIT# → EDBD → N.ED 12:21 → N.EDINP 15:41 → N.TELEN 17:43 → N.CC 09-15 18:16 → N.3E 09-16 17:38
PROVIDERS: ADMIT Internal Medicine; ATTEND Internal Medicine